=== PATIENT | male | born 1985 | race Caucasian/White ===

== ENCOUNTER 2016-12-11 20:50 | Emergency (ER) | payer OTHER ==
--- NOTE | 2016-12-11 22:36 | DIAGNOSTIC IMAGING REPORT ---
PROCEDURE: XR ANKLE 3 OR 4 VIEWS - LEFT INDICATION: Basketball injury, initial encounter TECHNIQUE: Four views. COMPARISON: None. FINDINGS: Osseous structures, joint spaces and soft tissues are normal. Ankle mortise is normal. IMPRESSION: 1. Normal left ankle.
--- NOTE | 2016-12-11 22:57 | ED CLINICAL REPORT ---
Clinical Report - Physicians/Mid Levels [facility] [address] [place] [place] [address] 12/11/2016 20:51 Patient: ZULEIMA HAGAN Time Seen: 22:03; initial patient contact, initial documentation, patient care assumed. Arrived- By private vehicle. Historian- patient. HISTORY OF PRESENT ILLNESS Chief Complaint: Injury to the left ankle. The injury happened just prior to arrival. ( says it happened right after he jumped off L foot, instant pain, was playing basketball). Patient is experiencing severe pain. Patient denies injury to the head or neck. No other injury. REVIEW OF SYSTEMS The patient complains of pain on weight bearing. No swelling, tingling, weakness, numbness or skin laceration. All systems otherwise negative, except as recorded above. PAST HISTORY Negative. SOCIAL HISTORY Never smoker. No alcohol use or drug use. No recent travel. Is a local resident. FAMILY HISTORY No significant family medical history. ADDITIONAL NOTES The nursing notes have been reviewed with agreement regarding the chief complaint, HPI, ROS, PMH and patient medications and allergies. PHYSICAL EXAM Vital Signs: 12/11/2016 21:30 BP: 143/103. HR: 83. RR: 20. O2 saturation: 97%. Temp: 98.2 F. Pain level now: 9/10. Have been reviewed as abnormal and appear to be correct. Hypertensive. Heart rate normal. Respiratory rate normal. Temperature normal. Oxygen saturation normal. Appearance: Alert. Oriented X3. No acute distress. Head: Head atraumatic. Eyes: Pupils equal, round and reactive to light. Eyes normal inspection. Respiratory: No respiratory distress. Skin: Skin intact. Skin warm and dry. Extremities: Ankle injury present. Left posterior ankle: moderate tenderness of the Achilles tendon. Limited movement (diminished plantar flexion and dorsiflexion). Neurovascular intact distally. No erythema, swelling, laceration, abrasion or ecchymosis. No puncture wound, foreign body or deformity. Positive squeeze test. No foot injury. Foot and ankle exam otherwise negative. Extremities otherwise negative. Neuro, Vascular and Tendons: Vascular status intact. Sensation intact. Motor intact. Tendon function intact. Gait: Abnormal gait. Gait not tested due to pain. Neuro: Oriented X 3. No motor deficit. No sensory deficit. Note: isolated injury to ankle. LABS, X-RAYS, AND EKG X-Rays: Left ankle negative. Lt Ankle X-ray: (IMPRESSION: 1. Normal left ankle. Electronically Final signed by:Urban England MD 12/11/2016 10:36:01 PM). The X-rays were interpreted by the radiologist and contemporaneously by me. PROGRESS AND PROCEDURES Patient counseled in person regarding the patient's stable condition, test results and diagnosis. 22:46. Differential Diagnosis: I considered fracture, stress fracture, bone contusion, sprain, hyperextension, dislocation, ligament tear, soft tissue injury, soft tissue hematoma and achilles tear as a possible cause of lower extremity pain in this patient. This is a partial list of diagnoses considered. Above considerations are based on history, physical exam and X-Ray data. Differential diagnosis was discussed with patient. Disposition: Discharged home in good and improved condition (22:57). Condition: good and stable. CLINICAL IMPRESSION Sprain of the calcaneofibular ligament of the left ankle. INSTRUCTIONS Apply ice for 20 minutes four times a day for two days until better. Don't apply ice directly to skin. Use crutches for as needed. Wear elastic wrap (Cody wrap) as directed for one weeks until better. Elevate affected areas above chest level for two days until better. Do not work today, tomorrow. Warnings: GENERAL WARNINGS: Return or contact your physician immediately if your condition worsens or changes unexpectedly, if not improving as expected, or if other problems arise. Specifically return if problem worsens. Prescription Medications: Flexeril 10 mg: Take 1 orally every 8 hours as needed for muscle spasm. Dispense twenty (20). No refills. Substitution is permissible. Ultram 50 mg tablets: take 1-2 orally every 6 hours as needed for pain. Dispense twenty (20). No refills. Substitution is permissible. Follow-up: Follow up with your doctor in about one week as needed. Call for an appointment. Summary of care provided to patient. Screening today revealed the patient's blood pressure to be in the hypertensive range. The patient should follow up with a primary care provider for blood pressure management. Understanding of the discharge instructions verbalized by patient. (Electronically signed by Geno Dooley A.R.N.P. 12/11/2016 23:27)
--- NOTE | 2016-12-11 22:58 | ED NURSING NOTES ---
Clinical Report - Nurses [facility] [address] [place] [place] [address] 12/11/2016 20:51 Patient: EL HAGAN TRIAGE Triage time 2130. Acuity: LEVEL 3. Chief Complaint: INJURY TO THE RIGHT ANKLE. --21:40 Hayley Bowie R.N. 21:30 12/11/16. BP: 143/103. HR: 83. RR: 20. O2 saturation: 97%. Temp: 98.2 F. Pain level now: 07/12. --21:40 Hayley Bowie R.N. Weight: 117.9 kg stated. Height/Length: 72 inches Per Patient. BMI: 35.3. --21:38 Hayley Bowie R.N. Medications None. --21:39 Hayley Bowie R.N. Allergies "cillins"=rash . --21:39 Hayley Bowie R.N. History Arrived by private vehicle, and accompanied by spouse. No primary care physician. This occurred just prior to arrival (2014). Mechanism of injury: (basketball inj). ( Pt worried that he has ruptured his achelies tendon. state it feels like it is balling up in his calf. has not been able to walk on leg). He has had trouble walking. SOCIAL HX: Never smoker. No alcohol use or drug use. --21:40 Hayley Bowie R.N. Interventions ID band on patient. To treatment room. --21:40 Hayley Bowie R.N. NURSING PROGRESS NOTES 22:42 12/11/2016 Hydrocodone-APAP (Hydrocodone-Acetaminophen) PO 5/325 mg Tablets 1 tab given. Allergies verified, confirmed 5 rights and sedative warning given to the patient. --22:42 El Osman R.N. DISPOSITION / DISCHARGE Departure time: 2315. Condition at departure: improved. No learning barriers present. Discharge instructions provided and reviewed with the patient and spouse. Reviewed warnings. Reviewed medication(s). Treatments reviewed. Reviewed referrals. Activity restrictions reviewed. Work note given. Patient and spouse verbalized understanding. Written instructions provided in Lao. The patient was discharged by the physician senior it assistant. He was discharged home and accompanied by spouse. He left the Emergency Department ambulatory and via private vehicle. Spouse driving. --23:16 El Osman R.N. 23:15 12/11/16. BP: 144/84. HR: 88. RR: 18. O2 saturation: 99%. Temp: 98 F. Pain level now 01/09. --23:16 El Osman R.N. Locked/Released at 12/11/2016 23:16 by El Osman R.N.
--- NOTE | 2016-12-11 22:58 | ED ORDER SUMMARY ---
..... Patient: EL HAGAN OrderSheet [facility] VisitID: [id number] [address] [place] [address] 31y, M Registration Date/Time: 12/11/2016 ORDER SHEET Weight: 117.9 kg (stated) Allergies: "cillins"=rash GENERAL ORDERS: Ankle 3 or 4V Left Urgent (22:10 12/11/2016 HBivens A.R.N.P.) (Ack 22:21 [facility]ling [facility] Manufacturing Accountant) (22:24 JBullard R.N.) Cody Wrap (22:57 12/11/2016 HBivens A.R.N.P.) (23:13 JBullard R.N.) Crutches (22:57 12/11/2016 HBivens A.R.N.P.) (23:13 JBullard R.N.) MEDICATION ORDERS: Hydrocodone-APAP PO 5/325 mg (NOW, HIGH ALERT MEDICATION) (22:10 12/11/2016 HBivens A.R.N.P.) (22:42 JBullard R.N.) IV FLUIDS: ORDER SHEET NOTES: [Electronically signed by El Osman R.N. (23:16 12/11/2016)] [Electronically signed by Geno Dooley A.R.N.P. (23:27 12/11/2016)] [Electronically locked/signed by El Osman R.N. (23:16 12/11/2016)]
--- NOTE | 2016-12-11 22:58 | ED NURSING NOTES ---
Clinical Report - Nurses [facility] [address] [place] [address] 12/11/2016 20:51 Patient: EL HAGAN TRIAGE Triage time 2130. Acuity: LEVEL 3. Chief Complaint: INJURY TO THE RIGHT ANKLE. --21:40 Hayley Bowie R.N. 21:30 12/11/16. BP: 143/103. HR: 83. RR: 20. O2 saturation: 97%. Temp: 98.2 F. Pain level now: 07/12. --21:40 Hayley Bowie R.N. Weight: 117.9 kg stated. Height/Length: 72 inches Per Patient. BMI: 35.3. --21:38 Hayley Bowie R.N. Medications None. --21:39 Hayley Bowie R.N. Allergies "cillins"=rash . --21:39 Hayley Bowie R.N. History Arrived by private vehicle, and accompanied by spouse. No primary care physician. This occurred just prior to arrival (2014). Mechanism of injury: (basketball inj). ( Pt worried that he has ruptured his achelies tendon. state it feels like it is balling up in his calf. has not been able to walk on leg). He has had trouble walking. SOCIAL HX: Never smoker. No alcohol use or drug use. --21:40 Hayley Bowie R.N. Interventions ID band on patient. To treatment room. --21:40 Hayley Bowie R.N. NURSING PROGRESS NOTES 22:42 12/11/2016 Hydrocodone-APAP (Hydrocodone-Acetaminophen) PO 5/325 mg Tablets 1 tab given. Allergies verified, confirmed 5 rights and sedative warning given to the patient. --22:42 El Osman R.N. DISPOSITION / DISCHARGE Departure time: 2315. Condition at departure: improved. No learning barriers present. Discharge instructions provided and reviewed with the patient and spouse. Reviewed warnings. Reviewed medication(s). Treatments reviewed. Reviewed referrals. Activity restrictions reviewed. Work note given. Patient and spouse verbalized understanding. Written instructions provided in Kyrgyz. The patient was discharged by the physician corporate administrative assistant. He was discharged home and accompanied by spouse. He left the Emergency Department ambulatory and via private vehicle. Spouse driving. --23:16 El Osman R.N. 23:15 12/11/16. BP: 144/84. HR: 88. RR: 18. O2 saturation: 99%. Temp: 98 F. Pain level now 01/09. --23:16 El Osman R.N. Locked/Released at 12/11/2016 23:16 by El Osman R.N.
--- NOTE | 2016-12-11 22:58 | ED ORDER SUMMARY ---
..... Patient: EL HAGAN OrderSheet [facility] VisitID: [id number] [address] [place] [address] 31y, M Registration Date/Time: 12/11/2016 ORDER SHEET Weight: 117.9 kg (stated) Allergies: "cillins"=rash GENERAL ORDERS: Ankle 3 or 4V Left Urgent (22:10 12/11/2016 HBivens A.R.N.P.) (Ack 22:21 Darling [facility] Clinical Fellow) (22:24 JBullard R.N.) Cody Wrap (22:57 12/11/2016 HBivens A.R.N.P.) (23:13 JBullard R.N.) Crutches (22:57 12/11/2016 HBivens A.R.N.P.) (23:13 JBullard R.N.) MEDICATION ORDERS: Hydrocodone-APAP PO 5/325 mg (NOW, HIGH ALERT MEDICATION) (22:10 12/11/2016 HBivens A.R.N.P.) (22:42 JBullard R.N.) IV FLUIDS: ORDER SHEET NOTES: [Electronically signed by El Osman R.N. (23:16 12/11/2016)] [Electronically signed by Geno Dooley A.R.N.P. (23:27 12/11/2016)] [Electronically locked/signed by El Osman R.N. (23:16 12/11/2016)]
--- NOTE | 2016-12-11 23:27 | ED DISCHARGE INSTRUCTIONS ---
Patient: ZULEIMA HAGAN General Instructions [facility] VisitID: [id number] [place] [address] 31y, M Registration Date/Time: 12/11/2016 Sprain of the calcaneofibular ligament of the left ankle. INSTRUCTIONS Apply ice for 20 minutes four times a day for two days until better. Don't apply ice directly to skin. Use crutches for as needed. Wear elastic wrap (Cody wrap) as directed for one weeks until better. Elevate affected areas above chest level for two days until better. Do not work today, tomorrow. Warnings: GENERAL WARNINGS: Return or contact your physician immediately if your condition worsens or changes unexpectedly, if not improving as expected, or if other problems arise. Specifically return if problem worsens. Prescription Medications: Flexeril 10 mg: Take 1 orally every 8 hours as needed for muscle spasm. Dispense twenty (20). No refills. Substitution is permissible. Ultram 50 mg tablets: take 1-2 orally every 6 hours as needed for pain. Dispense twenty (20). No refills. Substitution is permissible. Follow-up: Follow up with your doctor in about one week as needed. Call for an appointment. Summary of care provided to patient. Screening today revealed the patient's blood pressure to be in the hypertensive range. The patient should follow up with a primary care provider for blood pressure management. Understanding of the discharge instructions verbalized by patient. ADDITIONAL INFORMATION Sprain, Ankle,With X-Ray A sprain is an injury to the ligaments or capsule that holds a joint together. There are no broken bones. Most sprains take from four to six weeks to heal. If the ligament is completely torn (severe sprain), it can take several months to recover. Mild to moderate sprains may be treated with an elastic wrap or an in-shoe splint to provide support and prevent re-injury. A mild sprain may not require any additional support. A severe sprain may require surgery to repair. Home care The following guidelines will help you care for your injury at home: Stay off the injured leg as much as possible until you can walk on it without pain. If you have a lot of pain with walking, crutches or a walker may be prescribed. (These can be rented or purchased at many pharmacies and surgical or orthopedic supply stores). Follow your doctor's advice regarding when to begin bearing weight on that leg. Keep your leg elevated to reduce pain and swelling. When sleeping, place a pillow under the injured leg. When sitting, support the injured leg so it is level with your waist. This is very important during the first 48 hours. Apply an ice pack (ice cubes in a plastic bag, wrapped in a towel) over the injured area for 20 minutes every 12 hours the first day. You can place the ice pack directly over the splint/cast. If you were given a boot, open it to apply the ice pack. Continue with ice packs 34 times a day for the next two days, then as needed for the relief of pain and swelling. You may use acetaminophen or ibuprofen to control pain, unless another pain medicine was prescribed. If you have chronic liver or kidney disease or ever had a stomach ulcer or GI bleeding, talk with your doctor before using these medicines. You may return to sports after healing, when you can run without pain. A sprained ankle is at risk for re-injury during the first six weeks. During that time, protect your ankle with an in-shoe splint that prevents tilting of your ankle from side to side. This is very important if you do active work or play sports during that time. Follow-up care Any X-rays you had today dont show any broken bones, breaks, or fractures. Sometimes fractures dont show up on the first X-ray. Bruises and sprains can sometimes hurt as much as a fracture. These injuries can take time to heal completely. If your symptoms dont improve or they get worse, talk with your doctor. You may need a repeat X-ray. When to seek medical care Get prompt medical attention if any of the following occur: The plaster cast or splint gets wet or soft The fiberglass cast or splint gets wet and does not dry for 24 hours Pain or swelling increases, or redness appears Toes become cold, blue, numb or tingly Re-injure your ankle Crutch Walking Crutch Adjustment Make sure the crutches you use are adjusted to fit you. When you stand, there should be room to fit 2-3 fingers between the top of the crutch and your armpit. Your elbow should be slightly bent when holding the hand commodities broker. Crutch Walking: Place the crutches forward 12" in front of and 6" to the side of your feet. Lean your weight forward as you push down on the handgrips. Your weight should be on your hands and yourstrong leg, not your armpits . Let your body swing through, landing on the strong leg. Advance the crutches forward again. The crutch and the injured leg should move together. Going Up Steps: ("Up with the good") With both crutches on the same step as your feet, push down on the handgrips. Balancing with very light pressure on the weak leg, let your hands support your weight as you raise your strong leg onto the next higher step. Transfer all your weight to your strong leg (still bent) as you move the crutches up to the next step alongside the strong leg. With your weight evenly balanced on the two crutches and your strong leg, straighten your strong knee as you raise the weak leg up to the next step. Going Down Steps: ("Down with the bad") With both crutches on the same step as your feet, push down on the handgrips. With your weight evenly balanced on the two crutches and your strong leg, bend your strong knee as you lower the weak leg down to the next step. Let your strong leg support you (still bent) as you move the crutches down alongside the weak leg. Transfer your weight to your hands, balancing with very light pressure on the weak leg as you lower your strong leg alongside your weak leg. Cody Wrap An "Cody Bandage" refers to any elastic bandage wrap (2-6" wide). This is used to apply support and compression to an arm or leg. It will help prevent or reduce swelling also. When applying the bandage, it should not be stretched too tightly. A tight Cody Wrap will reduce circulation and cause tingling or numbness in the hand or foot. It may increase the pain under the bandage. If you get these symptoms, remove the wrap and rest the limb. Symptoms should go away within 1-2 hours. Once symptoms go away, reapply the bandage with less stretch. If symptoms do not go away after 1-2 hours with the bandage off, call your doctor or return to this facility promptly. Cyclobenzaprine Hydrochloride Oral tablet What is this medicine? CYCLOBENZAPRINE (yuliya cade) is a muscle relaxer. It is used to treat muscle pain, spasms, and stiffness. How should I use this medicine? Take this medicine by mouth with a glass of water. Follow the directions on the prescription label. If this medicine upsets your stomach, take it with food or milk. Take your medicine at regular intervals. Do not take it more often than directed. Talk to your microfilm machine operator regarding the use of this medicine in children. Special care may be needed. What side effects may I notice from receiving this medicine? Side effects that you should report to your doctor or health managed care analyst as soon as possible: allergic reactions like skin rash, itching or hives, swelling of the face, lips, or tongue chest pain fast heartbeat hallucinations seizures vomiting Side effects that usually do not require medical attention (report to your doctor or health managed care analyst if they continue or are bothersome): headache What may interact with this medicine? Do not take this medicine with any of the following medications: cisapride droperidol flecainide grepafloxacin halofantrine levomethadyl MAOIs like Carbex, Eldepryl, Marplan, Nardil, and Parnate nilotinib pimozide probucol sertindole This medicine may also interact with the following medications: abarelix alcohol contrast dyes dolasetron guanethidine medicines for cancer medicines for depression, anxiety, or psychotic disturbances medicines to treat an irregular heartbeat medicines used for sleep or numbness during surgery or procedure methadone octreotide ondansetron palonosetron phenothiazines like chlorpromazine, mesoridazine, prochlorperazine, thioridazine some medicines for infection like alfuzosin, chloroquine, clarithromycin, levofloxacin, mefloquine, pentamidine, troleandomycin tramadol vardenafil What if I miss a dose? If you miss a dose, take it as soon as you can. If it is almost time for your next dose, take only that dose. Do not take double or extra doses. Where should I keep my medicine? Keep out of the reach of children. Store at room temperature between 15 and 30 degrees C (59 and 86 degrees F). Keep container tightly closed. Throw away any unused medicine after the expiration date. What should I tell my health care provider before I take this medicine? They need to know if you have any of these conditions: heart disease, irregular heartbeat, or previous heart attack liver disease thyroid problem an unusual or allergic reaction to cyclobenzaprine, tricyclic antidepressants, lactose, other medicines, foods, dyes, or preservatives or trying to get breast-feeding What should I watch for while using this medicine? Check with your doctor or health managed care analyst if your condition does not improve within 1 to 3 weeks. You may get drowsy or dizzy when you first start taking the medicine or change doses. Do not drive, use machinery, or do anything that may be dangerous until you know how the medicine affects you. Stand or sit up slowly. Your mouth may get dry. Drinking water, chewing sugarless gum, or sucking on hard candy may help. Tramadol Hydrochloride Oral tablet What is this medicine? TRAMADOL (TRA ma dole) is a pain reliever. It is used to treat moderate to severe pain in adults. How should I use this medicine? Take this medicine by mouth with a full glass of water. Follow the directions on the prescription label. If the medicine upsets your stomach, take it with food or milk. Do not take more medicine than you are told to take. Talk to your microfilm machine operator regarding the use of this medicine in children. Special care may be needed. What side effects may I notice from receiving this medicine? Side effects that you should report to your doctor or health managed care analyst as soon as possible: allergic reactions like skin rash, itching or hives, swelling of the face, lips, or tongue breathing difficulties, wheezing confusion itching light headedness or fainting spells redness, blistering, peeling or loosening of the skin, including inside the mouth seizures Side effects that usually do not require medical attention (report to your doctor or health managed care analyst if they continue or are bothersome): constipation dizziness drowsiness headache nausea, vomiting What may interact with this medicine? Do not take this medicine with any of the following medications: MAOIs like Carbex, Eldepryl, Marplan, Nardil, and Parnate This medicine may also interact with the following medications: alcohol or medicines that contain alcohol antihistamines benzodiazepines bupropion carbamazepine or oxcarbazepine clozapine cyclobenzaprine digoxin furazolidone linezolid medicines for depression, anxiety, or psychotic disturbances medicines for migraine headache like almotriptan, eletriptan, frovatriptan, naratriptan, rizatriptan, sumatriptan, zolmitriptan medicines for pain like pentazocine, buprenorphine, butorphanol, meperidine, nalbuphine, and propoxyphene medicines for sleep muscle relaxants naltrexone phenobarbital phenothiazines like perphenazine, thioridazine, chlorpromazine, mesoridazine, fluphenazine, prochlorperazine, promazine, and trifluoperazine procarbazine warfarin What if I miss a dose? If you miss a dose, take it as soon as you can. If it is almost time for your next dose, take only that dose. Do not take double or extra doses. Where should I keep my medicine? Keep out of the reach of children. Store at room temperature between 15 and 30 degrees C (59 and 86 degrees F). Keep container tightly closed. Throw away any unused medicine after the expiration date. What should I tell my health care provider before I take this medicine? They need to know if you have any of these conditions: brain tumor depression drug abuse or addiction head injury if you frequently drink alcohol containing drinks kidney disease or trouble passing urine liver disease lung disease, asthma, or breathing problems seizures or epilepsy suicidal thoughts, plans, or attempt; a previous suicide attempt by you or a family member an unusual or allergic reaction to tramadol, codeine, other medicines, foods, dyes, or preservatives or trying to get breast-feeding What should I watch for while using this medicine? Tell your doctor or health managed care analyst if your pain does not go away, if it gets worse, or if you have new or a different type of pain. You may develop tolerance to the medicine. Tolerance means that you will need a higher dose of the medicine for pain relief. Tolerance is normal and is expected if you take this medicine for a long time. Do not suddenly stop taking your medicine because you may develop a severe reaction. Your body becomes used to the medicine. This does NOT mean you are addicted. Addiction is a behavior related to getting and using a drug for a non-medical reason. If you have pain, you have a medical reason to take pain medicine. Your doctor will tell you how much medicine to take. If your doctor wants you to stop the medicine, the dose will be slowly lowered over time to avoid any side effects. You may get drowsy or dizzy. Do not drive, use machinery, or do anything that needs mental alertness until you know how this medicine affects you. Do not stand or sit up quickly, especially if you are an older patient. This reduces the risk of dizzy or fainting spells. Alcohol can increase or decrease the effects of this medicine. Avoid alcoholic drinks. You may have constipation. Try to have a bowel movement at least every 2 to 3 days. If you do not have a bowel movement for 3 days, call your doctor or health managed care analyst. Your mouth may get dry. Chewing sugarless gum or sucking hard candy, and drinking plenty of water may help. Contact your doctor if the problem does not go away or is severe. You have been given the following additional information: Sprain, Ankle, With X-Ray Crutch Walking Cody Wrap Cyclobenzaprine Hydrochloride Oral tablet Tramadol Hydrochloride Oral tablet Do not work today, tomorrow. (Electronically signed by Geno Dooley A.R.N.P. 12/11/2016 23:27)
--- NOTE | 2016-12-11 23:28 | ED MAR SUMMARY ---
..... Medication Administration Record [facility] [address] [place] [place] [address] Patient: EL HAGAN Visit ID: [id number] 31y, M Weight: 117.9 kg Height/Length: 72 in BMI: 35.3 ALLERGIES: "cillins"=rash Given 22:42 12/11/2016 El Osman R.N. Medication Administered: HYDROCODONE-APAP [PO] (HYDROCODONE-ACETAMINOPHEN), Dose: 1 tab 5/325 mg Tablets PO. Medication Ordered: Hydrocodone-APAP PO 5/325 mg (NOW, HIGH ALERT MEDICATION).
--- NOTE | 2016-12-11 23:28 | ED MED RECONCILIATION SUMMARY ---
Patient: ZULEIMA HAGAN Medication Reconciliation Report [facility] VisitID: [id number] [address] [place] [address] 31y, M Registration Date/Time: 12/11/2016 Weight: 117.9 kg Height/Length: 72 in. BMI: 35.3 ALLERGIES: "cillins"=rash The patient's Home Medications are listed below: NONE. The source(s) of the original Home Medication information: Not obtained. The following Medications were given to the patient in the Emergency Department: Hydrocodone-APAP [PO] PO 1 tab, administered: 12/11/2016 10:42:00 PM The following Medications were prescribed to the patient: Flexeril 10 mg: Take 1 orally every 8 hours as needed for muscle spasm. Dispense twenty (20). No refills. Substitution is permissible. -- Geno Dooley, A.R.N.P. Ultram 50 mg tablets: take 1-2 orally every 6 hours as needed for pain. Dispense twenty (20). No refills. Substitution is permissible. -- Geno Dooley, A.R.N.P.
--- NOTE | 2016-12-11 23:28 | ED MED RECONCILIATION SUMMARY ---
Patient: ZULEIMA HAGAN Medication Reconciliation Report [facility] VisitID: [id number] [address] [place] [place] [address] 31y, M Registration Date/Time: 12/11/2016 Weight: 117.9 kg Height/Length: 72 in. BMI: 35.3 ALLERGIES: "cillins"=rash The patient's Home Medications are listed below: NONE. The source(s) of the original Home Medication information: Not obtained. The following Medications were given to the patient in the Emergency Department: Hydrocodone-APAP [PO] PO 1 tab, administered: 12/11/2016 10:42:00 PM The following Medications were prescribed to the patient: Flexeril 10 mg: Take 1 orally every 8 hours as needed for muscle spasm. Dispense twenty (20). No refills. Substitution is permissible. -- Geno Dooley, A.R.N.P. Ultram 50 mg tablets: take 1-2 orally every 6 hours as needed for pain. Dispense twenty (20). No refills. Substitution is permissible. -- Geno Dooley, A.R.N.P.
--- NOTE | 2016-12-11 23:28 | ED MAR SUMMARY ---
..... Medication Administration Record [facility] [address] [place] [place] [address] Patient: EL HAGAN Visit ID: [id number] 31y, M Weight: 117.9 kg Height/Length: 72 in BMI: 35.3 ALLERGIES: "cillins"=rash Given 22:42 12/11/2016 El Osman R.N. Medication Administered: HYDROCODONE-APAP [PO] (HYDROCODONE-ACETAMINOPHEN), Dose: 1 tab 5/325 mg Tablets PO. Medication Ordered: Hydrocodone-APAP PO 5/325 mg (NOW, HIGH ALERT MEDICATION).
== END 2016-12-11 23:04 | disposition home or self-care (01) ==
LOC: ED SRH 20:50
DX: S93.412A Sprain of calcaneofibular ligament of left ankle, initial encounter (principal); X50.1XXA Overexertion from prolonged static or awkward postures, initial encounter; Y93.67 Activity, basketball; Y92.9 Unspecified place or not applicable; Y99.8 Other external cause status